=== PATIENT | female | born 1985 | race Asian ===

== ENCOUNTER 2020-02-15 08:00 | Outpatient (CLI) | payer OTHER ==
[2020-02-15 20:42] LABS: TRICHOMONAS VAGINALIS DNA NEGATIVE (NEGATIVE)
== END 2020-02-15 23:59 | disposition home or self-care (01) ==
LOC: LAB.R 08:00
PROVIDERS: ATTEND Obstetrics & Gynecology
DX: Z34.80 Encounter for supervision of other normal pregnancy, unspecified trimester (principal)
CPT/HCPCS: 87491; 87591; 87661; 87797

== ENCOUNTER 2020-03-01 05:45 | Inpatient (IN) | payer OTHER ==
[2020-03-01] MEDS ORDERED: SODIUM CHLORIDE FLUSH 0.9% 10 ML SYRINGE IVP PRN (06:05)
[2020-03-01] MEDS ORDERED: AMPICILLIN 2 GM in SODIUM CHLORIDE 0.9% MINIBAG 100 ML IV ONE (06:05)
[2020-03-01] MEDS ORDERED: OXYTOCIN/SODIUM CHLORIDE 500 ML IV PRN (06:05)
[2020-03-01 06:43] LABS: BASOPHILS % (AUTO) 0.5 %; EOSINOPHILS % (AUTO) 0.3 %; HGB - HEMOGLOBIN 10.6 g/dL (12.0-16.0); LYMPHOCYTES % (AUTO) 14.4 %; MEAN CORPUSCULAR HEMOGLOBIN 31.5 pg (27.0-31.0); MEAN CORPUSCULAR HGB CONC 34.3 g/dL (32.0-36.0); MEAN PLATELET VOLUME 11.5 fL (7.9-10.8); MONOCYTES # (AUTO) 0.4 10^3/uL (0.0-1.0); MONOCYTES % (AUTO) 5.8 %; NEUTROPHILS # (AUTO) 5.2 10^3/uL (1.5-6.6); NEUTROPHILS % (AUTO) 78.8 %; PLT - PLATELET COUNT 141 10^3/uL (130-450); RED BLOOD COUNT 3.36 10^6/uL (4.20-5.40); RED CELL DISTRIBUTION WIDTH 12.2 % (12.0-15.0); WHITE BLOOD COUNT 6.6 x10^3/uL (4.8-10.8)
[2020-03-01] MEDS ORDERED: LACTATED RINGERS 1,000 ML IV SCH (07:00)
[2020-03-01] MEDS ORDERED: WITCH HAZEL/GLYCERIN 1 PAD TOP PRN (07:51)
[2020-03-01] MEDS ORDERED: ACETAMINOPHEN 325 MG TABLET PO PRN (07:51)
--- NOTE | 2020-03-01 07:53 | HISTORY & PHYSICAL EXAMINATION ---
Admit History - Visit Reason Visit Reason: Contractions - : 5 Parity: 2 Premature: 0 Ectopic: 1 : 1 Smoking Status: Never smoker Meds/Allgy - Allergies Allergies/Adverse Reactions: Allergies Allergy/AdvReac Type Severity Reaction Status Date / Time No Known Drug Allergies Allergy Verified 03/01/20 06:20 Review of Systems - Constitutional Constitutional: denies: Fatigue, Fever, Chills, Weakness - Eyes Eyes: denies: Blurred vision, Spots in vision - Ears, Nose & Throat Ears, Nose & Throat: denies: Nasal congestion, Sore throat - Respiratory Respiratory: denies: Wheezing, SOB at rest, SOB with exertion - Gastrointestinal Gastrointestinal: denies: Nausea, Vomiting - Genitourinary Genitourinary: denies: Hematuria - Musculoskeletal Musculoskeletal: denies: Muscle pain, Muscle weakness - Neurological Neurological: denies: General weakness, Headache, Dizziness - Psychiatric Psychiatric: denies: Depression, Anxiety Physical - Abdominal Exam Vital Signs: Temp Pulse Resp BP Pulse Ox 37 C 77 18 123/58 L 100 03/01/20 06:05 03/01/20 05:54 03/01/20 05:54 03/01/20 05:54 03/01/20 05:54 Contraction Frequency (min/apart): 3-4 Contraction Intensity: positive: Strong Uterine Resting Tone: positive: Soft - Monitoring Strip Review: positive: Category I - Presentation Presentation: positive: Vertex - Vaginal Exam Membranes: positive: Membranes intact Plan for Labor - Plan For Labor I expect patient to be DC'd or transferred within 96 hours.: Yes Plan for Labor: Jaida is a 34yo at 39.0 wks gestation who presented to labor and delivery for contractions. Contractions palpate strong q2-4mins FHTs 135 with moderate variability and accelerations, some early and an intermittent variable are noted +FM, -VB/LOF Care- adequate care from [facility] prior to transfer to [facility] at 33.5wks complications -Advanced Maternal Age -GBS positive Dating Criteria- Dating based on 14 wk us on 09/08/19 NOT c/w LMP OB Hx -G1: 2014 term -G2: 2016 ectopic with salpingectomy -G3: 2018 term -G4: current Medications -PNV daily -Iron supplementation 325mg daily Allergies -NKDA Medical History -None Surgical History -2016 salpingectomy r/t ectopic Family History -non contributing Social History - -Never smoker Labs B+/rubella immune Genetic- unclear, pt states done at [facility] but no history found GBS- positive Glucola- 126 SVE on admit 4-5/90%/-1 per RN verbal report Assessment 34yo at 39.0wks gestation presents in active labor Cat I strip/Adequate contractions GBS Positive Plan Admit to Labor and Delivery IPAP for GBS Monitoring- Continuous Pt aware whirlpool tub, fentanyl, and epidural available PRN- desires NCB Diet/Activity- as tolerated Anticipate
--- NOTE | 2020-03-01 07:54 | DELIVERY NOTE ---
Delivery Note - Labor Labor: positive: Spontaneous - Delivery Method Delivery Method: positive: Spontaneous vaginal delivery - Presentation Presentation: positive: Vertex, JOBY - left occiput anterior - Nuchal Cord Nuchal Cord: positive: Reduced - Amniotic Fluid Description Amniotic Fluid Description: positive: Clear - Laceration Laceration: positive: None - [place] : positive: Placed in direct skin contact with mother, Stimulated, [place] used sex: positive: Male - Cord Cord: positive: 3 vessels - Placenta Placenta: positive: Intact, Spontaneous - Estimated Blood Loss Estimated Blood Loss (in cc): 200 - Post Delivery Events Post Delivery Events: positive: No post delivery events - Delivery Comments (Free Text/Narrative) Delivery Comments (Free Text/Narrative): Labor: This 34 year old, , @39.0wks gestation by 14week Ultrasound, not consistent with LMP, presented @ 0600 in active labor. Cervix was 4-5/90/-1 and vertex. FHR pattern demonstrated moderate variability in a Category I pattern. Normal labor course. Unmedicated labor per maternal preference. SROM occurred @ 0720 and was noted to be moderate and clear. Pt was complete and spontaneously at 0717. : Normal of a 2913gm male on 03/01/2020 @ 0732. Nuchal was loose and reduced. The was placed on maternal abdomen, stimulated, dried and placed skin to skin. Apgars 9 at one minute and 9 at five minutes. The umbilical cord was allowed to stop pulsating at which time it was doubly clamped by ADILENE and cut by Jaida. Pitocin administered via IV for hemostasis. Fundal massage and gentle cord traction applied for active third stage management. Cord blood was obtained. Placenta delivered spontaneously and intact at 0741. Three vessel cord. EBL 200mL. Fourth Stage: Uterine fundus firm and without excessive bleeding. The perineum, vagina, and cervix were inspected and found to be intact. Vaginal initiated. Family bonding well. Both mother and baby are in stable condition.
[2020-03-01] MEDS ORDERED: IBUPROFEN 600 MG TABLET PO SCH (08:00)
[2020-03-01] MEDS ORDERED: SODIUM CHLORIDE FLUSH 0.9% 10 ML SYRINGE IVP SCH (09:00)
[2020-03-01] MEDS ORDERED: AMPICILLIN 1 GM in SODIUM CHLORIDE 0.9% MINIBAG 100 ML IV SCH (10:30)
[2020-03-02 11:33] VITALS: BP 110/62
--- NOTE | 2020-03-02 15:48 | PROVIDER PROGRESS NOTE ---
Subjective - Subjective Subjective: FINAL PROGRESS NOTE S: Bonding well, without difficulty, Bleeding reported as light , Pain well managed- does not require NSAIDs, desires to go home when appropriate O: Vitals wnl Fundus firm Lochia light A: 34yo, , PP day 2 Status post term Perineum inact and healing well P: Review Continue routine care and meds Evaluate for DC to [facility] status or home tomorrow when baby appropriate for discharge Objective - Vital Signs/Intake & Output Vital Signs: Vital Signs x48h Temp Pulse Resp BP Pulse Ox 03/02/20 11:33 36.7 C 70 16 110/62 100 03/02/20 08:31 36.8 C 74 18 106/50 L 100 Intake & Output: Intake & Output 02/28/20 02/29/20 03/01/20 03/02/20 23:59 23:59 23:59 23:59 Intake Total 1000 Output Total 1100 Balance -100 - Lab Results Fish Bones: 03/01/20 06:30
--- NOTE | 2020-03-02 19:29 | Labor Flowsheet ---
Labor Flowsheet Datetime Report Generated by CPN: 03/02/2020 19:28 Datetime: 03/02/2020 07:57 VITAL SIGNS NBP Sys/Laura/Mean (mmHg): 106 : 50 : 63 Pulse: 72 Datetime: 03/02/2020 03:39 SpO2 (%): 100 Datetime: 03/01/2020 18:56 Membranes Ruptured Date/Time: 03/01/2020 07:20 Amniotic Fluid Color: Clear Amniotic Fluid Odor: None Datetime: 03/01/2020 09:30 Stage of : Recovery Datetime: 03/01/2020 07:29 LaborFlag: Labor Datetime: 03/01/2020 07:20 Membrane Status: Ruptured Membranes Rupture Method: Spontaneous Amniotic Fluid Amount: Small Datetime: 03/01/2020 07:15 Patient Position/Activity: Left Lateral Datetime: 03/01/2020 07:09 COMMUNICATION Communication: Report Given to @ H.[place] RN Datetime: 03/01/2020 07:04 Provider Notified (Name): H.Andrew CNM Communication Comments: patient cervix 9.5cm Datetime: 03/01/2020 07:03 VAGINAL EXAM Dilatation (cm): 9.5 Effacement (%): 100 Station: 0 Exam by: Tierney RN Datetime: 03/01/2020 06:59 UTERINE ACTIVITY Monitor Mode: External Frequency (min): 2-6 Quality: Strong Duration (sec): 60-90 Pattern: Normal: <= 5 Contractions in 10 Minutes Resting Tone (Palpate): Relaxed ASSESSMENT A Monitor Mode: Telemetry FHR Baseline Rate : 120 Variability: Moderate 6-25 bpm Accelerations: 15X15 Decelerations: Variable Category: Category II Oxygen Method: Room Air Datetime: 03/01/2020 06:50 Patient Care Comments: labs drawn by lab Datetime: 03/01/2020 06:33 MEDICATIONS Antibiotics: Ampicillin IV 2 Gm PATIENT CARE IV/Blood Work: IV Infusing per Order; New IV Bag Hung
--- NOTE | 2020-03-05 16:12 | DISCHARGE SUMMARY ---
Discharge Summary Discharge Disposition: 01 Home, Self Care - ALLERGIES Allergies/Adverse Reactions: Allergies Allergy/AdvReac Type Severity Reaction Status Date / Time No Known Drug Allergies Allergy Verified 03/01/20 06:20 - LABS Result Diagrams: 03/01/20 06:30 - FOLLOW UP Follow Up: Date of Admission 03/01/2020 Date of Discharge 03/02/2020 Diagnosis on Admission: 1. A 34yo at 39.0 week intrauterine 2. Active Labor 3. GBS Positive Diagnosis on Discharge 1. A 34yo s/p spontaneous vaginal delivery on 03/01/2020 2. Normal recovery Brief History: She is a patient at [facility] who presented on 03/01/2020 with complaints of contractions. The patient was found to contract every 1 to 4 minutes and her cervix was 4cm dilated, 90%effaced, and -1 station. She spontaneously delivered a viable male infant named Markus. Apgars were 9 and 9- at 1 and 5 minutes respectively. EBL 200mL. The patient.'s perineum was found to be intact. She has been doing well in her course. She is ambulating and tolerating a regular diet. She is urinating without difficulty and her lochia is normal. Her pain is well controlled without any medications. She will be discharged home today on day #1 without need for prescriptions for. She intends to follow up with myself at [facility] in 3 weeks for routine visit. She has been given precautions to call if she has any worsening fevers, chills, abdominal pain, increased bleeding or foul smelling vaginal lochia.
== END 2020-03-02 19:10 | disposition home or self-care (01) | DRG 807 ==
LOC: WFO 05:45 → FBP 05:50 → WFO 06:04 → FBP 06:05
PROVIDERS: ADMIT Advanced Practice Midwife; ATTEND Obstetrics & Gynecology
PROC: 10E0XZZ Delivery of Products of Conception, External Approach (ICD-10-PCS; principal; 2020-03-01)
DX: O99.824 Streptococcus B carrier state complicating childbirth (principal); Z37.0 Single live birth; O69.81X0 Labor and delivery complicated by cord around neck, without compression, not applicable or unspecified; Z3A.39 39 weeks gestation of pregnancy
CPT/HCPCS: 85025; 99213; A9270; J7120